=== PATIENT | female | born 1990 | race Caucasian/White ===

== ENCOUNTER 2020-07-27 10:29 | Outpatient (CLI) | payer OTHER, SELFPAY ==
--- NOTE | ~2020-07-27 | US_ITS ---
EXAMINATION: US abdomen complete DATE: 07/27/2020 10:52 INDICATION: Epigastric abdominal pain TECHNIQUE: Multiple grayscale and Doppler ultrasound images of the abdomen were obtained. COMPARISON: CT, 02/02/2018 FINDINGS: The head, body, and tail of the pancreas are normal. The liver is normal with normal echoge nicity and echotexture. No surface nodularity. Normal hepatopetal flow in the main portal vein. A sto ne is present in the nondistended gallbladder. There is no gallbladder wall thickening or pericholecy stic fluid. The normal common bile duct measures 2 mm. There was no sonographic Thompson sign. The visu alized portions of the aorta and inferior vena cava are normal. The right kidney measures 9.1 x 4.2 x 3.7 cm. The left kidney measures 10.3 x 4.8 x 3.6 cm. The kidne ys demonstrate normal parenchymal echogenicity. There is no hydronephrosis. The spleen is normal in a ppearance and measures 11.3 cm cm. IMPRESSION: 1. Cholelithiasis without evidence of cholecystitis. Reviewed, dictated and finalized at location A. DISPENSER
== END 2020-07-27 10:30 | disposition home or self-care (01) ==
PROVIDERS: PCP Family Medicine; Visit Provider Nurse Practitioner Family
DX: R10.816 Epigastric abdominal tenderness (principal); R10.811 Right upper quadrant abdominal tenderness; K80.20 Calculus of gallbladder without cholecystitis without obstruction
CPT/HCPCS: 76700

== ENCOUNTER 2020-08-22 08:07 | Outpatient (CLI) | payer OTHER, SELFPAY ==
--- NOTE | ~2020-08-22 | NM_ITS ---
EXAMINATION: GA hepatobiliary wo pharm DATE: 08/22/2020 13:29 INDICATION: Right upper quadrant abdominal tenderness. COMPARISON: Ultrasound 07/27/2020 TECHNIQUE: 4.9 mCi Tc-99m mebrofenin (Choletec) was administered intravenously. Scintigraphic images of the abdomen were obtained for one hour. Delayed images were obtained at 4 hours. FINDINGS: There is normal clearance of radiotracer from the blood pool. There is homogeneous tracer u ptake by the liver. Activity progresses to the bowel in 20 minutes. There is activity in the gallbla dder at 4 hours. IMPRESSION: 1. Patent cystic duct. No evidence of acute cholecystitis. Reviewed, dictated and finalized at location A.
== END 2020-08-22 08:08 | disposition home or self-care (01) ==
PROVIDERS: PCP Family Medicine; Visit Provider Family Medicine
DX: R10.811 Right upper quadrant abdominal tenderness (principal)
CPT/HCPCS: 78226; 78227; A9537; J2805

== ENCOUNTER → 2020-08-23 02:06 | Outpatient (CLI) | payer OTHER, SELFPAY ==
[2020-08-23 19:33] LABS: SARS-CoV-2 RNA PCR Negative
== END ==
PROVIDERS: PCP Family Medicine; Visit Provider Internal Medicine Gastroenterology
DX: Z01.812 Encounter for preprocedural laboratory examination (principal); Z20.822 Contact with and (suspected) exposure to COVID-19
CPT/HCPCS: C9803; U0003; U0005

== ENCOUNTER 2020-08-26 01:28 | Day surgery (SDC) | payer OTHER, SELFPAY ==
[2020-08-19 10:14] VITALS: BMI 31.2
[2020-08-26 09:54] VITALS: BP 108/68; PULSE 69; RESP 18; TEMP 36.1; O2SAT 99; BMI 27.8
[2020-08-26] MEDS: LACTATED RINGERS 1,000 ML 150 ML IV CONT (10:11)
--- NOTE | 2020-08-26 10:42 | WPDANESEPPF ---
Anes - Initial Pre Proc Eval Procedure: Operation Date: 08/26/20 11:00 Proposed Procedures p Esophagogastroduodenoscopy & Colonoscopy - Nj De Luna MD Date/Time: 08/26/20 10:42 Surgeon: Nj De Luna MD Pre Op Diagnosis: colitis, abd pain, GERD, nausea Patient Data Age: 29 Gender: F Height: 5 ft 1 in Weight: 67 kg Last Vital Signs Temp 96.9 F L 08/26/20 09:54 Pulse 69 08/26/20 09:54 Resp 18 08/26/20 09:54 BP 108/68 08/26/20 09:54 Pulse Ox 99 08/26/20 09:54 Allergies Allergy/AdvReac Type Severity Reaction Status Date / Time No Known Allergies Allergy Unknown Verified 08/26/20 09:48 Home Medications Medication Instructions Recorded Confirmed Type buprenorphine 8 mg-naloxone 2 mg 2 film BUCCAL DAILY 07/25/19 08/19/20 History sublingual film omeprazole 40 mg capsule,delayed 40 mg PO DAILY #30 cap 07/21/20 08/19/20 Rx release ondansetron HCl 4 mg tablet 4 mg PO Q6H PRN 07/21/20 08/19/20 History oxybutynin chloride 5 mg 5 mg PO DAILY #30 tablet 07/31/20 08/19/20 Rx tablet,extended release 24 hr meloxicam 15 mg tablet 15 mg PO DAILY PRN tablet 08/13/20 08/19/20 History Patient hx anesthesia problems: none Family hx anesthesia problems: none PMFSH Past Medical History Medical History BMI 30.0-30.9,adult BMI 31.0-31.9,adult BMI 32.0-32.9,adult Hx of intravenous drug use in remission Tobacco abuse Surgical History Surgical History History of knee surgery Family History Family History Mother Family history of arthritis Hypertension Diabetes mellitus Father Family history of alcoholism Sibling Ovarian cancer Gall bladder disease Polycystic ovarian disease Hypertension Other Family history of malignant neoplasm of breast in first degree relative Social History Social History Smoking packs per day: 0.33 Smoking cigarettes per day: 6.6 Years smoked: 15 Smoking pack-years: 4.95 Tobacco type: e-cigarettes/vaping Second hand tobacco smoke exposure: No Alcohol intake: never Substance use: former Substance use type: marijuana, heroin and painkillers Other substance usage details: 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 USES MARIJUANA NOW Living arrangements: with family Additional occupation/education comments: [employer] Spiritual care concerns: No Anes - Eval Final PreProcedure Day of Procedure 08/26/20 10:42 Patient weight: normal Heart: regular rate and rhythm Lungs: clear to auscultation Airway: Mallampati scale class II Neurological: alert and oriented Last oral intake: >/= 8 hours ASA classification: III Emergent: no Anesthetic plan: proceed Anesthesia type and monitoring: general GIVS and standard monitoring Informed Consent: The patient's anesthetic plan and its attendant risks and benefits were discussed with the patient/family/POA. Questions were solicited and answers provided to the satisfaction of the patient/family/POA.
--- NOTE | 2020-08-26 10:51 | PM.HPGS ---
History of Present Illness History of Present Illness Consent: Risks, benefits, and alternatives have been discussed and questions answered. Patient agrees to proceed with procedure. Chief complaint: colitis, abd pain, GERD, nausea Narrative: Jacqueline Moore is a 29 year old female referred for investigation of persistent vomiting nausea abdominal pain and diarrhea Review of Systems Review of Systems: All systems reviewed & are unremarkable except as noted in HPI and below PMFSH Past Medical History Medical History BMI 30.0-30.9,adult BMI 31.0-31.9,adult BMI 32.0-32.9,adult Hx of intravenous drug use in remission Tobacco abuse Surgical History Surgical History History of knee surgery Family History Family History Mother Family history of arthritis Hypertension Diabetes mellitus Father Family history of alcoholism Sibling Ovarian cancer Gall bladder disease Polycystic ovarian disease Hypertension Other Family history of malignant neoplasm of breast in first degree relative Social History Social History Smoking packs per day: 0.33 Smoking cigarettes per day: 6.6 Years smoked: 15 Smoking pack-years: 4.95 Tobacco type: e-cigarettes/vaping Second hand tobacco smoke exposure: No Alcohol intake: never Substance use: former Substance use type: marijuana, heroin and painkillers Other substance usage details: 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 USES MARIJUANA NOW Living arrangements: with family Additional occupation/education comments: [employer] Spiritual care concerns: No Meds Home Medications and Allergies Home Medications Medication Instructions Recorded Confirmed Type buprenorphine 8 mg-naloxone 2 mg 2 film BUCCAL DAILY 07/25/19 08/19/20 History sublingual film omeprazole 40 mg capsule,delayed 40 mg PO DAILY #30 cap 07/21/20 08/19/20 Rx release ondansetron HCl 4 mg tablet 4 mg PO Q6H PRN 07/21/20 08/19/20 History oxybutynin chloride 5 mg 5 mg PO DAILY #30 tablet 07/31/20 08/19/20 Rx tablet,extended release 24 hr meloxicam 15 mg tablet 15 mg PO DAILY PRN tablet 08/13/20 08/19/20 History Allergies Allergy/AdvReac Type Severity Reaction Status Date / Time No Known Allergies Allergy Unknown Verified 08/26/20 09:48 Vital Signs Vital Signs - 24 hr 08/26/20 09:54 Temperature 36.1 C L Pulse Rate 69 Respiratory Rate 18 Blood Pressure 108/68 Pulse Oximetry 99 Exam Const: General: alert Orientation/consciousness: patient oriented x3 Resp: Auscultation: clear to auscultation bilaterally Cardio: Rhythm: regular rhythm GI: GI Palp: Yes Soft to palpation and No Tenderness to palpation present (GI) Neuro: General: patient oriented x3 Assessment and Plan Assessment and plan (1) Abdominal pain: Code(s): R10.9 - Unspecified abdominal pain Status: Acute Assessment and Plan: EGD with possible biopsy or dilatation or cautery. (2) Colitis: Code(s): K52.9 - Noninfective gastroenteritis and colitis, unspecified Status: Acute Assessment and Plan: Colonoscopy with possible biopsy or polypectomy or cautery or injection of substances.
[2020-08-26 11:25] VITALS: BP 82/44; PULSE 71; RESP 18; O2SAT 93
[2020-08-26 11:33] VITALS: BP 82/47; PULSE 67; RESP 18; O2SAT 93
[2020-08-26 11:43] VITALS: BP 111/73; PULSE 68; RESP 18; O2SAT 97
== END 2020-08-26 12:08 | disposition home or self-care (01) ==
PROVIDERS: PCP Family Medicine; Visit Provider Internal Medicine Gastroenterology
PROC: 0DJ08ZZ Inspection of Upper Intestinal Tract, Via Natural or Artificial Opening Endoscopic (ICD-10-PCS; CPT 43235; principal; 2020-08-26 11:00)
DX: K52.9 Noninfective gastroenteritis and colitis, unspecified (principal); R11.2 Nausea with vomiting, unspecified; K31.84 Gastroparesis; K29.70 Gastritis, unspecified, without bleeding; K21.9 Gastro-esophageal reflux disease without esophagitis; F17.290 Nicotine dependence, other tobacco product, uncomplicated; F11.21 Opioid dependence, in remission; F12.90 Cannabis use, unspecified, uncomplicated
CPT/HCPCS: 45380; 43239; 87081; 88305; J2001; J2704; J7120

== ENCOUNTER 2021-09-16 17:07 | Outpatient (CLI) | payer OTHER, SELFPAY ==
--- NOTE | ~2021-09-16 | US_ITS ---
EXAMINATION: US abdomen limited DATE: 09/16/2021 17:43 INDICATION: Right upper quadrant pain TECHNIQUE: Multiple grayscale and Doppler ultrasound images of the abdomen were obtained. COMPARISON: 07/27/2020 FINDINGS: Bowel gas obscures visualization of the pancreas. The liver is normal with normal echogenic ity and echotexture. No surface nodularity. Normal hepatopetal flow in the main portal vein. A stone is present in the nondistended gallbladder. There is no gallbladder wall thickening or pericholecysti c fluid. The normal common bile duct measures 4 mm. There was no sonographic Thompson sign. IMPRESSION: 1. Cholelithiasis without additional findings of cholecystitis. Reviewed, dictated and finalized at location F.
[2021-09-16 17:53] LABS: Basophils Percent Auto 0.6 % (0.2-1.2); Eosinophils Absolute Auto 0.1 K/mm3 (0-0.3); Eosinophils Percent Auto 1.3 % (0-4.4); Hematocrit 43.7 % (37.0-47.0); Hemoglobin 13.8 g/dL (12.0-15.0); Immature Granulocyte Absolute 0.01 K/mm3 (0.00-0.031); Immature Granulocyte Percent A 0.1 % (0-0.5); Lymphocytes Absolute Auto 2.82 K/mm3 (0.9-3.2); Lymphocytes Percent Auto 41.9 % (18.3-44.2); Mean Corpuscular HGB Conc 31.6 g/dl (32-36); Mean Corpuscular Hemoglobin 27.5 pg (26-34); Mean Corpuscular Volume 87.2 fl (80-100); Monocytes Absolute Auto 0.4 K/mm3 (0.1-0.6); Monocytes Percent Auto 5.3 % (2.6-8.5); Neutrophils Absolute Auto 3.4 K/mm3 (1.3-6.7); Neutrophils Percent Auto 50.8 % (45.5-73.1); Platelet Count Result 220 k/mm3 (150-375); Red Blood Count 5.01 M/mm3 (4.2-5.4); Red Cell Distribution Width 13.3 % (11.5-14.5); White Blood Count 6.7 K/mm3 (4.5-10.0)
[2021-09-16 18:04] LABS: Alanine Aminotransferase 11 U/L (4-35); Albumin Level 4.5 g/dL (3.5-5.1); Alkaline Phosphatase 78 U/L (38-126); Amylase 58 U/L (30-110); Anion Gap 5 mmol/L (8-16); Aspartate Amino Transferase 21 U/L (14-36); Bilirubin,Total 0.9 mg/dL (0.2-1.3); Blood Urea Nitrogen 8 mg/dL (7-17); Calcium 8.9 mg/dL (8.4-10.2); Carbon Dioxide 31 mmol/L (22-30); Chloride 103 mmol/L (98-107); Estimated Glomerular Filt Rate > 60; Glucose 96 mg/dL (65-110); Lipase 38 U/L (23-300); Potassium 3.8 mmol/L (3.4-5.0); Sodium 139 mmol/L (137-145)
== END 2021-09-16 17:08 | disposition home or self-care (01) ==
PROVIDERS: PCP Family Medicine; Visit Provider Nurse Practitioner Family
DX: R10.9 Unspecified abdominal pain (principal); R11.2 Nausea with vomiting, unspecified; R10.811 Right upper quadrant abdominal tenderness; K80.20 Calculus of gallbladder without cholecystitis without obstruction
CPT/HCPCS: 36415; 76705; 80053; 82150; 83690; 85025

== ENCOUNTER 2023-01-27 10:56 | Emergency (ER) | payer BC, SELFPAY ==
--- NOTE | ~2023-01-27 | XR_ITS ---
Supine and upright views of the abdomen Clinical history: Abdominal pain Findings: Bowel gas pattern is nonspecific. Moderate to large stool burden noted. Cholecystectomy cli ps are present. No evidence for obstruction or free air. No abnormal mass lesion or calcification is seen. Osseous structures are intact. Impression: Moderate to large stool burden. Correlate for constipation. Reviewed, dictated and finalized at [facility]. Impression: Moderate to large stool burden. Correlate for constipation.
[2023-01-27 11:05] VITALS: BP 131/81; PULSE 69; RESP 18; TEMP 36.6; O2SAT 100
[2023-01-27 12:17] LABS: Basophils Percent Auto 0.6 % (0.2-1.2); Eosinophils Absolute Auto 0.1 K/mm3 (0-0.3); Eosinophils Percent Auto 1.7 % (0-4.4); Hematocrit 42.8 % (37.0-47.0); Hemoglobin 13.4 g/dL (12.0-15.0); Immature Granulocyte Absolute 0.04 K/mm3 (0.00-0.031); Immature Granulocyte Percent A 0.6 % (0-0.5); Lymphocytes Absolute Auto 1.97 K/mm3 (0.9-3.2); Lymphocytes Percent Auto 30.7 % (18.3-44.2); Mean Corpuscular HGB Conc 31.3 g/dl (32-36); Mean Corpuscular Volume 89.5 fl (80-100); Mean Platelet Volume 11.7 fl (7.4-10.4); Monocytes Absolute Auto 0.4 K/mm3 (0.1-0.6); Monocytes Percent Auto 5.6 % (2.6-8.5); Neutrophils Absolute Auto 3.9 K/mm3 (1.3-6.7); Neutrophils Percent Auto 60.8 % (45.5-73.1); Platelet Count Result 191 k/mm3 (150-375); Red Blood Count 4.78 M/mm3 (4.2-5.4); Red Cell Distribution Width 12.6 % (11.5-14.5); White Blood Count 6.4 K/mm3 (4.5-10.0)
[2023-01-27 12:31] LABS: Alanine Aminotransferase 15 U/L (6-35); Albumin Level 4.2 g/dL (3.5-5.1); Alkaline Phosphatase 53 U/L (38-126); Anion Gap 7 mmol/L (8-16); Aspartate Amino Transferase 23 U/L (14-36); Bilirubin,Total 0.6 mg/dL (0.2-1.3); Blood Urea Nitrogen 10 mg/dL (7-17); Calcium 8.4 mg/dL (8.4-10.2); Carbon Dioxide 25 mmol/L (22-30); Chloride 106 mmol/L (98-107); Estimated Glomerular Filt Rate > 60; Glucose 93 mg/dL (65-110); Lipase 63 U/L (23-300); Potassium 4.7 mmol/L (3.4-5.0); Sodium 138 mmol/L (137-145)
[2023-01-27 12:38] LABS: Appearance Urine Cloudy (Clear); Bacteria Urine Rare /hpf; Bilirubin Urine Negative (Negative); Blood Urine Negative (Negative); Budding Yeast Urine Present /hpf; Color Urine Yellow (Yellow); Glucose Urine UA Negative (Negative); Ketones Urine Negative (Negative); Leukocyte Esterase Ur 2+ LEU/UL (Negative); Need Manual Microscopic Reviewed; Nitrate Urine Negative (Negative); Non Pathogenic Casts 0-2; Protein Urine Negative (Negative); RBC Urine 0-2 /hpf (0-2); Specific Grav Ur 1.017 (1.001-1.035); Squamous Epithelial Cell Urine Many /hpf (Few); Urobilinogen Urine 0.2 mg/dL (<2.0); WBC Urine 21-50 /hpf; pH Urine 6.5 (5.0-9.0)
[2023-01-27 12:44] LABS: Add Urine Microscopic? YES
--- NOTE | 2023-01-27 12:59 | ED.ABDPAIN ---
HPI - Abdominal Pain General Chief Complaint: Abdominal Pain Stated Complaint: Abd pain Time Seen by Provider: 01/27/23 12:58 Source: patient Mode of arrival: ambulatory Limitations: no limitations History of Present Illness HPI narrative: Jacqueline is a 32-year-old female patient presenting to the ER with complaints of mid abdominal pain with nausea and vomiting times 3-4 days. She also reports a stabbing pain to the mid and left-side of her abdomen. No chills or fevers. Was seen in urgent care recently and given prescription for Macrobid for urinary tract infection and Protonix. She reports that she has been taking [id number] laxatives and has tried an enema and passed a large amount of stool. Patient takes Suboxone for history of drug abuse Related Data Home Medications Medication Instructions Recorded Confirmed buprenorphine 12 mg-naloxone 3 mg 1 film buccal BID 09/16/21 03/04/22 sublingual film (Suboxone) venlafaxine 75 mg capsule,extended 75 mg PO DAILY 03/04/22 03/04/22 release 24 hr Allergies Allergy/AdvReac Type Severity Reaction Status Date / Time ondansetron Allergy Mild Hives Verified 01/27/23 10:58 Review of Systems Review of Systems: Pertinent positives per HPI. Patient denies any fever, chills, rash, headache, visual changes, dizziness, cough, runny nose, sore throat, shortness of breath, chest pain, palpitations, nausea, vomiting, diarrhea. PMFSH Past Medical History Medical History BMI 29.0-29.9,adult BMI 30.0-30.9,adult BMI 31.0-31.9,adult BMI 32.0-32.9,adult Cholecystectomy planned Colonoscopy planned Hx of intravenous drug use in remission Infected tooth Tobacco abuse Surgical History Surgical History H/O endoscopy History of knee surgery Family History Family History Mother Family history of arthritis Hypertension Diabetes mellitus Father Family history of alcoholism Sibling Ovarian cancer Gall bladder disease Polycystic ovarian disease Hypertension Other Family history of malignant neoplasm of breast in first degree relative Social History Social History Smoking packs per day: 0.33 Smoking cigarettes per day: 6.6 Years smoked: 15 Smoking pack-years: 4.95 Smoking status: Former smoker Tobacco type: e-cigarettes/vaping Second hand tobacco smoke exposure: No Alcohol intake: never Substance use: former Substance use type: marijuana, heroin and painkillers Other substance usage details: 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 There is no relevant family history pertinent to the patient complaint. Exam Narrative: General: Well-developed, well nourished, in no apparent distress. Head: Normocephalic, atraumatic. Cardio: Regular rate and rhythm, s1 and s2 normal, no murmur appreciated. Resp: Clear to auscultation bilaterally, no rhonchi, rales, wheezing or rubs. Abdomen: Soft, pliable, bowel sounds present in all quadrants, generalized tender to palpation to abdomen, no organomegly, no CVAT tenderness. Course Course Emergency Course: Portions of this record may have been created with voice recognition software. Vital Signs Vital signs: Vital Signs Temperature 36.6 C 01/27/23 11:05 Pulse Rate 69 01/27/23 11:05 Respiratory Rate 18 01/27/23 11:05 Blood Pressure 131/81 01/27
--- NOTE | 2023-01-27 13:34 | PC.NURSE ---
Patient of unit to radiology.
[2023-01-27 14:36] VITALS: BP 130/90; PULSE 93; RESP 16; TEMP 36.6; O2SAT 100
== END 2023-01-27 14:37 | disposition home or self-care (01) ==
PROVIDERS: Emergency Medicine; Emergency Provider Nurse Practitioner Family; PCP Family Medicine
DX: N30.00 Acute cystitis without hematuria (principal); K59.00 Constipation, unspecified; R10.84 Generalized abdominal pain; Z87.891 Personal history of nicotine dependence
CPT/HCPCS: 36415; 74019; 80053; 81001; 81025; 83690; 85025; 87086; 99283

== ENCOUNTER 2023-02-22 12:42 | Emergency (ER) | payer BC, SELFPAY ==
--- NOTE | 2023-02-22 12:51 | ED.URI ---
HPI - URI/Sore Throat General Stated Complaint: covid symptoms Time Seen by Provider: 02/22/23 12:51 Source: patient and RN notes reviewed Mode of arrival: ambulatory Limitations: no limitations History of Present Illness HPI Narrative: 32-year-old female who tested positive for COVID at home today, presented for evaluation for covid symptoms. She states she will also need a return to work note. Endorses headache, body aches, sinus pressure/congestion, cough, fever/chills. Taking Tylenol and ibuprofen. Reports recently positive with COVID as well. Denies sob, wheezing, n/v/d. MD elicited complaint: cough Related Data Home Medications Medication Instructions Recorded Confirmed buprenorphine 12 mg-naloxone 3 mg 1 film buccal BID 09/16/21 03/04/22 sublingual film (Suboxone) venlafaxine 75 mg capsule,extended 75 mg PO DAILY 03/04/22 03/04/22 release 24 hr Allergies Allergy/AdvReac Type Severity Reaction Status Date / Time ondansetron Allergy Mild Hives Verified 01/27/23 10:58 Review of Systems Review of Systems: CONSTITUTIONAL: Endorses malaise, chills, sweats, fever EYES: Denies visual changes, redness, or discharge ENT: Reports rhinorrhea, congestion, sinus pain, otalgia, sore throat CARDIOVASCULAR: Denies chest pain, palpitations, edema RESPIRATORY: Reports cough, post nasal drainage. Denies dyspnea GASTROINTESTINAL: Denies abdominal pain, nausea, vomiting, diarrhea SKIN: Denies rash or itching MUSCULOSKELETAL: Endorses myalgia NEUROLOGIC: Endorses headache PMFSH Past Medical History Medical History BMI 29.0-29.9,adult BMI 30.0-30.9,adult BMI 31.0-31.9,adult BMI 32.0-32.9,adult Cholecystectomy planned Colonoscopy planned Hx of intravenous drug use in remission Infected tooth Tobacco abuse Surgical History Surgical History H/O endoscopy History of knee surgery Family History Family History Mother Family history of arthritis Hypertension Diabetes mellitus Father Family history of alcoholism Sibling Ovarian cancer Gall bladder disease Polycystic ovarian disease Hypertension Other Family history of malignant neoplasm of breast in first degree relative Social History Social History Smoking packs per day: 0.33 Smoking cigarettes per day: 6.6 Years smoked: 15 Smoking pack-years: 4.95 Smoking status: Former smoker Tobacco type: e-cigarettes/vaping Second hand tobacco smoke exposure: No Alcohol intake: never Substance use: former Substance use type: marijuana, heroin and painkillers Other substance usage details: 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 HEAD: Normocephalic EYES: PERRLA, conjunctivae clear ENT: Mucous membranes moist. TMs pearly espino with dull light reflex bilaterally; no tragal tenderness. No drooling, no hoarseness, no trismus;No tripod positioning, muffled voice NECK: Supple. No lymphadenopathy CHEST: Clear to auscultation, breath sounds equal. No wheezing, rhonchi, rales, or stridor. No respiratory distress, speaks in full sentences. HEART: Regular rate and rhythm. No murmur heard. SKIN: Warm, dry, no rash. NEURO: Alert and oriented x3. PSYCH: Normal mood and affect Course Course Emergency Course: Patient is aware of diagnosis, understands and agrees to treatment plan. Anticipatory guidance given. Patient agrees to follow-up as directed and is aware of reasons
[2023-02-22 12:56] VITALS: BP 142/88; PULSE 61; RESP 16; TEMP 36.3; O2SAT 100
== END 2023-02-22 13:01 | disposition home or self-care (01) ==
PROVIDERS: Emergency Provider Nurse Practitioner Family; PCP Family Medicine
DX: U07.1 COVID-19 (principal); Z87.891 Personal history of nicotine dependence
CPT/HCPCS: 99211; G0463

== ENCOUNTER 2023-05-05 12:25 | Emergency (ER) | payer BC, SELFPAY ==
[2023-05-05 12:43] VITALS: BP 129/79; PULSE 68; RESP 18; TEMP 36.4; O2SAT 99
--- NOTE | 2023-05-05 13:07 | ED.GENADULT ---
HPI - General Adult General Chief complaint: Abdominal Pain Stated complaint: fever,abdominal pain Time Seen by Provider: 05/05/23 13:07 Source: patient, RN notes reviewed and old records reviewed Mode of arrival: ambulatory Limitations: no limitations History of Present Illness HPI narrative: 32-year-old female presents to [facility] with complaints cough, congestion for several weeks. Then last night started having abdominal pain with nausea. Patient states pain comes and goes, and seems to be worse after eating. Patient does not have her gallbladder. Patient has not taken anything for symptoms MD complaint: abdominal pain Onset (ago): day(s) (1) Radiation: non-radiation Severity: moderate Quality: aching Pain Consistency: intermittent Relieving factors: none Exacerbating factors: eating Related Data Home Medications Medication Instructions Recorded Confirmed buprenorphine 12 mg-naloxone 3 mg 1 film buccal BID 09/16/21 05/05/23 sublingual film (Suboxone) Allergies Allergy/AdvReac Type Severity Reaction Status Date / Time ondansetron Allergy Mild Hives Verified 01/27/23 10:58 Review of Systems Constitutional: Constitutional: Reports no additional constitutional complaints Eyes: Eyes: Reports no additional eye complaints ENT: Reports as per HPI and Reports nasal congestion Cardiovascular: Cardiovascular: Reports no additional cardiovascular complaints Respiratory: Respiratory: Reports as per HPI, Reports chest congestion, Reports cough, Denies pain with cough and Denies dyspnea Gastrointestinal: Gastrointestinal: Reports as per HPI, Reports abdominal pain, Reports nausea and Denies vomiting Neurologic: Reports system reviewed and no additional complaints, except as documented PMFSH Past Medical History Medical History BMI 29.0-29.9,adult BMI 30.0-30.9,adult BMI 31.0-31.9,adult BMI 32.0-32.9,adult Cholecystectomy planned Colonoscopy planned Hx of intravenous drug use in remission Infected tooth Tobacco abuse Surgical History Surgical History H/O endoscopy History of knee surgery Family History Family History Mother Family history of arthritis Hypertension Diabetes mellitus Father Family history of alcoholism Sibling Ovarian cancer Gall bladder disease Polycystic ovarian disease Hypertension Other Family history of malignant neoplasm of breast in first degree relative Social History Social History Smoking packs per day: 0.33 Smoking cigarettes per day: 6.6 Years smoked: 15 Smoking pack-years: 4.95 Smoking status: Former smoker Tobacco type: e-cigarettes/vaping Second hand tobacco smoke exposure: No Alcohol intake: never Substance use: former Substance use type: marijuana, heroin and painkillers Other substance usage details: 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 There is no relevant family history pertinent to the patient complaint. Exam Const: General: cooperative, healthy appearing, no acute distress and well nourished Nutritional Appearance: well nourished Orientation/consciousness: patient oriented x3 Limitations: no limitations HENMT: Head: normal to inspection and normocephalic Ears: external ears normal, TM's normal bilaterally, mastoids normal and Abnormal EAC present Face/Nose/Sinus: normal facial exam Face and sinus:
== END 2023-05-05 13:29 | disposition home or self-care (01) ==
PROVIDERS: Emergency Provider Registered Nurse; PCP Family Medicine
DX: R10.84 Generalized abdominal pain (principal); R11.0 Nausea; Z79.899 Other long term (current) drug therapy; Z87.891 Personal history of nicotine dependence; Z20.822 Contact with and (suspected) exposure to COVID-19
CPT/HCPCS: 87081; 87426; 87804; 87880; 99213; C9803; G0463

== ENCOUNTER 2024-12-02 17:27 | Emergency (ER) | payer OTHER, SELFPAY ==
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
[2024-12-02 17:39] VITALS: BP 103/82; PULSE 75; RESP 16; TEMP 35.9; O2SAT 100
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
== END 2024-12-02 18:50 | disposition home or self-care (01) ==
PROVIDERS: Emergency Provider Nurse Practitioner; PCP Nurse Practitioner Family
DX: S90.32XA Contusion of left foot, initial encounter (principal); W22.8XXA Striking against or struck by other objects, initial encounter
CPT/HCPCS: 73630; 99213; G0463